=== PATIENT | female | born 1985 | race Caucasian/White ===

== ENCOUNTER → 2024-01-27 12:38 | Outpatient (REF) | payer OTHER, SELFPAY | LOC: HWRAD 12:38 | PROVIDERS: ATTENDING PHYSICIAN Specialist; FAMILY PHYSICIAN Family Medicine | DX: N20.0 Calculus of kidney (principal) | CPT/HCPCS: 74176 ==

== ENCOUNTER 2024-02-01 06:16 | Day surgery (SDC) | payer OTHER, SELFPAY ==
[2024-02-01] VITALS (22 sets, daily range): BP systolic 78–119; BP diastolic 48–85; BMI 23.9
[2024-02-01] MEDS: NORMOSOL-R 1000 IV (08:09)
[2024-02-01] MEDS: TRANSDERM-SCOP 1 PATCH TRANSDERM (08:15)
[2024-02-01] MEDS: TYLENOL 1000 MG PO (08:15)
[2024-02-01] MEDS: Pyridium 200 MG PO (11:59)
[2024-02-05 10:21] LABS: Stone Analysis Mass 22 mg
== END 2024-02-01 13:03 | disposition home or self-care (01) ==
LOC: SDS 06:16
PROVIDERS: ATTENDING PHYSICIAN Specialist
DX: N20.2 Calculus of kidney with calculus of ureter (principal)
CPT/HCPCS: 52356; 74018; 76000; 82365; C1894; C2617

== ENCOUNTER → 2024-06-13 10:36 | Outpatient (REF) | payer OTHER, SELFPAY | LOC: HWRAD 10:36 | PROVIDERS: ATTENDING PHYSICIAN Nurse Practitioner Family; FAMILY PHYSICIAN Family Medicine | DX: D86.0 Sarcoidosis of lung (principal) | CPT/HCPCS: 71046 ==

== ENCOUNTER → 2024-08-13 09:21 | Outpatient (REF) | payer OTHER, SELFPAY | LOC: HWRAD 09:21 | PROVIDERS: ATTENDING PHYSICIAN Internal Medicine Endocrinology, Diabetes & Metabolism; FAMILY PHYSICIAN Family Medicine | DX: E04.2 Nontoxic multinodular goiter (principal) | CPT/HCPCS: 76536 ==

== ENCOUNTER → 2025-04-11 09:32 | Outpatient (REF) | payer OTHER, SELFPAY | LOC: HWRAD 09:32 | PROVIDERS: ATTENDING PHYSICIAN Specialist; FAMILY PHYSICIAN Family Medicine | DX: N20.0 Calculus of kidney (principal) | CPT/HCPCS: 74018 ==

== ENCOUNTER → 2025-05-08 10:48 | Outpatient (REF) | payer OTHER, SELFPAY | LOC: HWRAD 10:48 | PROVIDERS: ATTENDING PHYSICIAN Nurse Practitioner Family; FAMILY PHYSICIAN Family Medicine | DX: R10.33 Periumbilical pain (principal) | CPT/HCPCS: 74150 ==

== ENCOUNTER 2025-07-17 06:21 | Day surgery (SDC) | payer OTHER, SELFPAY ==
[2025-07-17] VITALS (11 sets, daily range): BP systolic 79–128; BP diastolic 50–90; BMI 23.6
[2025-07-17] MEDS: TYLENOL 1000 MG PO (11:27)
[2025-07-17] MEDS: NORMOSOL-R/PLASMALYTE-A 1000 IV (11:35)
== END 2025-07-17 15:35 | disposition home or self-care (01) ==
LOC: SDS 06:21
PROVIDERS: ATTENDING PHYSICIAN Surgery
DX: K42.9 Umbilical hernia without obstruction or gangrene (principal)
CPT/HCPCS: 49591